=== PATIENT | female | born 1990 | race Caucasian/White ===

== ENCOUNTER 2020-12-01 07:53 | Emergency (ER) | payer MEDICAID, SELFPAY ==
[~2020-12-01] VITALS: Ht 160 cm; Wt 49.9 kg
[2020-12-01 08:04] VITALS: BP 121/68
[2020-12-01] MEDS ORDERED: KETOROLAC 30 MG/ML VIAL IM ONE (08:10)
--- NOTE | 2020-12-01 08:11 | NUR ---
Pt ambulated to Chair C.
--- NOTE | 2020-12-01 08:19 | NUR ---
PT TAKEN TO XRAY VIA W/C
[2020-12-01] MEDS ORDERED: IBUP-2213 PO (09:03)
[2020-12-01 09:05] VITALS: BP 121/68
--- NOTE | 2020-12-01 09:05 | NUR ---
PER ERMD PT WAS PLACE ON A THUMB SPLINT AMD PMCS WAS CHECK BEFORE AND AFTER ALL WNL.
== END 2020-12-01 09:05 | disposition home or self-care (01) ==
LOC: MED 07:53
DX: M25.531 Pain in right wrist (principal)
CPT/HCPCS: 29125; 73110; 96372; 99283; J1885; Q0092

== ENCOUNTER 2021-02-01 11:07 | Emergency (ER) | payer MEDICAID, SELFPAY ==
[~2021-02-01] VITALS: Ht 162.6 cm; Wt 51.8 kg
[~2021-02-01 11:07] MED LIST: IBUP-2213 PO
[2021-02-01 11:25] VITALS: BP 101/54
--- NOTE | 2021-02-01 11:32 | NUR ---
PT AMB TO BED 10
--- NOTE | 2021-02-01 11:47 | NUR ---
30 Y/O FEMALE BIB SELF. PATIENT PRESENTS TO ED WITH PRODUCTIVE COUGH, SORE THROAT, PAIN IN BACK, AND HOARSENESS. PT STATES CURRENT CONDITION HAS BEEN LASTIUNG FOR 5 DAYS. DENIES N/V/D; SKIN IS PINK/WARM/DRY; AAOX4 WITH EVEN AND STEADY GAIT; LUNGS; HR EVEN AND REGULAR; PATIENT STATES PAIN OF 8/10 AT THIS TIME; VSS; PATIENT POSITIONED FOR COMFORT; HOB ELEVATED; BEDRAILS UP X1; BED DOWN. ER MD MADE AWARE OF PT STATUS. NO PMH (GAVE 4 MONTHS PRIOR) NKDA NO MEDS
--- NOTE | 2021-02-01 12:32 | NUR ---
ER AT BEDSIDE
[2021-02-01] MEDS: IBUPROFEN 400 MG TAB PO ONE (12:44)
--- NOTE | 2021-02-01 12:45 | NUR ---
PERFORMED COVID-19 DARWIN SWAB AT THIS TIME AND WALKED TO LAB
[2021-02-01 13:34] VITALS: BP 101/54
--- NOTE | 2021-02-01 13:34 | NUR ---
Patient discharged with v/s stable. Written and verbal after care instructions given and explained. Patient verbalized understanding. Ambulatory with steady gait. All questions addressed prior to discharge. Advised to follow up with PMD.
== END 2021-02-01 13:34 | disposition home or self-care (01) ==
LOC: MED 11:07
DX: B34.9 Viral infection, unspecified (principal); Z20.822 Contact with and (suspected) exposure to COVID-19; Z88.0 Allergy status to penicillin; Z79.899 Other long term (current) drug therapy; Z98.890 Other specified postprocedural states
CPT/HCPCS: 99283

== ENCOUNTER 2021-07-23 03:35 | Emergency (ER) | payer MEDICAID ==
[~2021-07-23] VITALS: Ht 160 cm; Wt 49.0 kg
[2021-07-23 03:46] VITALS: BP 107/73
--- NOTE | 2021-07-23 03:52 | NUR ---
PATIENT TO [facility]
--- NOTE | 2021-07-23 04:13 | NUR ---
KIP KWAW EXAMINING PATIENT IN TRIAGE.
[2021-07-23] MEDS ORDERED: diphenhydrAMINE 50 MG CAP PO ONE (04:15)
--- NOTE | 2021-07-23 04:30 | NUR ---
SWABBED PATIENT AND SENT TO LAB RECEIVED BY [facility]
[2021-07-23] MEDS ORDERED: BEN50 PO (05:30)
--- NOTE | 2021-07-23 05:35 | NUR ---
Discharged by [facility].
[2021-07-23] MEDS ORDERED: PRED20TA5 PO (18:03)
[2021-07-23] MEDS ORDERED: OINT1OIN48 TP (18:03)
[2021-07-23] MEDS ORDERED: FAMO-368 PO (18:03)
== END 2021-07-23 05:36 | disposition home or self-care (01) ==
LOC: MED 03:35
DX: L50.9 Urticaria, unspecified (principal); Z88.0 Allergy status to penicillin; Z20.822 Contact with and (suspected) exposure to COVID-19
CPT/HCPCS: 87426; 99283; Q0163

== ENCOUNTER 2021-07-23 17:02 | Emergency (ER) | payer MEDICAID ==
[~2021-07-23] VITALS: Ht 162.6 cm; Wt 49.9 kg
[~2021-07-23 17:02] MED LIST changes: +BEN50 PO
[2021-07-23 17:24] VITALS: BP 126/72
[2021-07-23] MEDS ORDERED: DEXAMETHASONE 10 MG/ML VIAL IM ONE (17:55)
[2021-07-23] MEDS ORDERED: OINT1OIN48 TP (18:03)
[2021-07-23] MEDS ORDERED: PRED20TA5 PO (18:03)
[2021-07-23] MEDS ORDERED: FAMO-368 PO (18:03)
[2021-07-23 19:15] VITALS: BP 112/78
--- NOTE | 2021-07-23 19:29 | NUR ---
Patient discharged with v/s stable. Written and verbal after care instructions given and explained. Patient alert, oriented and verbalized understanding of instructions. Ambulatory with steady gait. All questions addressed prior to discharge. ID band removed. Patient advised to follow up with PMD. Rx of FAMOTIDINE, AQUAPHOR, DELTASONE given. Patient educated on indication of medication including possible reaction and side effects. Opportunity to ask questions provided and answered.
== END 2021-07-23 19:29 | disposition home or self-care (01) ==
LOC: MED 17:02
DX: R21 Rash and other nonspecific skin eruption (principal); R05.9 Cough, unspecified; R09.89 Other specified symptoms and signs involving the circulatory and respiratory systems; Z88.0 Allergy status to penicillin
CPT/HCPCS: 81025; 96372; 99283; J1100; Q0163